=== PATIENT | male | born 1995 | race Caucasian/White ===

== ENCOUNTER 2021-11-09 11:51 | Emergency (ER) | payer SELFPAY ==
[~2021-11-09] VITALS: Ht 180.3 cm; Wt 85.8 kg
[2021-11-09] MEDS ORDERED: fentaNYL INJ 100 MCG/2 ML AMP IM STA (12:00)
--- NOTE | 2021-11-09 12:10 | ED Upper Extremity ---
General Chief Complaint: Upper Extremity Stated Complaint: RT ELBOW INJ History of Present Illness Date Seen by Provider: Nov 09, 2021 Time Seen by Provider: 12:00 Initial Comments 25-year-old male presents with injury to his right upper arm. Patient was playing basketball when he went to [employer] [facility] [employer] grabbed the rim it up coming down on his right elbow and right upper arm. Has pain just proximal to the right elbow. He does have painful but full range of motion. Patient states the pain can it radiates to the whole part of his upper arm. This happened approximately 40 minutes prior to arrival Allergies and Home Medications Allergies Coded Allergies: No Known Drug Allergies (Unverified , 11/09/21) Patient Home Medication List Home Medication List Reviewed: Yes Hydrocodone/Acetaminophen (Hydrocodone-Acetamin 5-325 mg) 1 Each Tablet, 1 TAB PO Q12H PRN for PAIN-MODERATE (5-7) Prescribed by: LEANA MARTÍNEZ on 11/09/21 1237 Review of Systems Constitutional: no symptoms reported EENTM: no symptoms reported Respiratory: no symptoms reported Cardiovascular: no symptoms reported Gastrointestinal: no symptoms reported Genitourinary: no symptoms reported Musculoskeletal: see HPI Skin: see HPI Psychiatric/Neurological: No Symptoms Reported Past Wwwkzum-Cxsyss-Ivlwic Hx Patient Social History Tobacco Use?: No Smoking Status: Never a Smoker Smokeless Tobacco Frequency: Never a User Use of E-Cig and/or Vaping dev: No Use of E-Cig and/or Vaping Angus: Never a User Substance use?: No Alcohol Use?: No Pt feels they are or have been: No Physical Exam Vital Signs Vital Signs - First Documented 11/09/21 11/09/21 11:53 12:56 Temp 36.8 Pulse 132 Resp 14 B/P (MAP) 152/90 (110) Pulse Ox 100 O2 Delivery Room Air Capillary Refill : Height, Weight, BMI Height: '" Weight: lbs. oz. kg; BMI Method: General Appearance: WD/WN, no apparent distress Cardiovascular: normal peripheral pulses, regular rate, rhythm Respiratory: lungs clear, normal breath sounds Gastrointestinal: non tender, soft Shoulder: normal inspection, non-tender Elbow/Forearm: Right, bone tenderness, soft tissue tenderness, swelling Wrist: Yes normal inspection Neurologic/Psychiatric: alert, normal mood/affect, oriented x 3 Skin: normal color, warm/dry Progress/Results/Core Measures Results/Orders My Orders Orders - LEANA MARTÍNEZ DO Fentanyl Inj (Sublimaze Injection) (11/09/21 12:00) Humerus 2 View Right (11/09/21 12:00) Vital Signs/I&O Progress Progress Note : Progress Note Patient's x-ray shows no acute fracture. Patient does have full range of motion. Patient likely has an elbow/upper arm contusion from the fall. Discussed with patient x-ray findings. Recommended that if symptoms are not improved in a week he follows up with primary care provider for repeat x-ray. Patient stable and discharged Diagnostic Imaging Diagonstic Imaging: Xray Plain Films/CT/US/NM/MRI: other Comments Date of Exam:11/09/21 HUMERUS 2 VIEW RIGHT CLINICAL INDICATION: Patient is status post fall. Patient with right arm pain. Patient states he cut his arm in a basketball rim trying to make a basket. EXAM: X-ray of the right humerus, three views. COMPARISON: None. FINDINGS AND IMPRESSION: There is no acute fracture or dislocation. There is no significant bone or joint abnormality. Reviewed: Reviewed by Me, Reviewed/Discussed Departure Impression Primary Impression: Contusion of elbow Qualified Codes: S50.01XA - Contusion of right elbow, initial encounter Disposition: HOME, SELF-CARE Condition: Stable Departure-Patient Inst. Referrals: NO,LOCAL PHYSICIAN (PCP/Family) Primary Care Physician Patient Instructions: Contusion (DC) Add. Discharge Instructions: 4% topical lidocaine with menthol cream or gel. Use as directed on pack Voltaren/diclofenac cream or gel use as directed on package Ice for 20 to 30 minutes 4-5 times daily for 24 hours and warm moist Ibuprofen 800 mg every 6-8 hours as needed for pain All discharge instructions reviewed with patient and/or family. Voiced understanding. Scripts Hydrocodone/Acetaminophen (Hydrocodone-Acetamin 5-325 mg) 1 Each Tablet 1 TAB PO Q12H PRN for PAIN-MODERATE (5-7), #5 TAB Prov: LEANA MARTÍNEZ DO 11/09/21 LEANA MARTÍNEZ DO Nov 09, 2021 12:10
--- NOTE | 2021-11-09 12:25 | Diagnostic Imaging Report ---
CLINICAL INDICATION: Patient is status post fall. Patient with right arm pain. Patient states he cut his arm in a basketball rim trying to make a basket. EXAM: X-ray of the right humerus, three views. COMPARISON: None. FINDINGS AND IMPRESSION: There is no acute fracture or dislocation. There is no significant bone or joint abnormality. Dictated by: Dictated on workstation # [id number]
[2021-11-09] MEDS ORDERED: ACHD5005 PO (12:36)
[2021-11-09 12:56] VITALS: BP 124/76
== END 2021-11-09 12:56 | disposition home or self-care (01) ==
LOC: ER FS 11:52
DX: S50.01XA Contusion of right elbow, initial encounter (principal); W21.05XA Struck by basketball, initial encounter; Y93.67 Activity, basketball
CPT/HCPCS: 73060